=== PATIENT | male | born 1950 | race Caucasian/White ===

== ENCOUNTER 2018-12-30 13:40 | Emergency (ER) | payer OTHER, MEDICARE ==
--- NOTE | 2018-12-30 17:07 | ER Document Report ---
HPI - HPI Time Seen by Provider: 12/30/18 15:58 Pain Level: 4 Notes: Patient is an otherwise healthy 68-year-old male presented to the emergency department chief complaint of left ear pain. Patient reports he fell yesterday while walking through his garage and had earbuds in. He thinks that when he put his hand up to block the fall he pushed the earbuds further in. He states that he had immediate pain and had immediate drainage from the ear. He denies any fevers or recent illness. - CONSTITUTIONAL Constitutional: DENIES: Fever, Chills - EENT EENT: REPORTS: Ear Pain. DENIES: Sore Throat, Eye problems - NEURO Neurology: DENIES: Headache, Weakness, Vision blurred, Dizzinesss / Vertigo - CARDIOVASCULAR Cardiovascular: DENIES: Chest pain - RESPIRATORY Respiratory: DENIES: Trouble Breathing, Coughing - GASTROINTESTINAL Gastrointestinal: DENIES: Abdominal Pain, Black / Bloody Stools - URINARY Urinary: DENIES: Dysuria, Urgency, Frequency - MUSCULOSKELETAL Musculoskeletal: DENIES: Extremity pain Past Medical History - General Information source: Patient - Social History Smoking Status: Never Smoker Chew tobacco use (# tins/day): No Frequency of alcohol use: None Drug Abuse: None Family History: Reviewed & Not Pertinent Patient has suicidal ideation: No Patient has homicidal ideation: No - Past Medical History Cardiac Medical History: Reports: Hx Hypercholesterolemia, Hx Hypertension Renal/ Medical History: Denies: Hx Peritoneal Dialysis Past Surgical History: Reports: Hx Cardiac Catheterization - stents Vertical Provider Document - CONSTITUTIONAL Notes: PHYSICAL EXAMINATION: GENERAL: Well-appearing, well-nourished and in no acute distress. HEAD: Atraumatic, normocephalic. EYES: Pupils equal round extraocular movements intact, conjunctiva are normal. ENT: Nares patent, left TM perforation. Right TM appears unremarkable. NECK: Normal range of motion LUNGS: No respiratory distress Musculoskeletal: Normal range of motion NEUROLOGICAL: Normal speech, normal gait. PSYCH: Normal mood, normal affect. SKIN: Warm, Dry, normal turgor, no rashes or lesions noted. Course - Re-evaluation Re-evalutation: Obvious perforated TM to left side. Will start patient on Augmentin and refer to ENT. Patient updated on plan of care and is agreeable to same. ED return precautions were discussed to include development of fever or increased pain. - Vital Signs Vital signs: Temp Pulse Resp BP Pulse Ox 98.0 F 78 16 130/91 H 97 12/30/18 13:53 12/30/18 13:53 12/30/18 13:53 12/30/18 13:53 12/30/18 13:53 Discharge - Discharge Clinical Impression: Perforated tympanic membrane Qualifiers: Laterality: left Qualified Code(s): H72.92 - Unspecified perforation of tympan ic membrane, left ear Condition: Stable Disposition: HOME, SELF-CARE Additional Instructions: It appears that the tympanic membrane of the left ear is perforated. Please take the antibiotics as prescribed. As discussed please follow-up with ears nose and throat doctor. I have given you contact information for [facility]. Please call them tomorrow to schedule a follow-up appointment. In the meantime do not allow any fluid into the ear when showering. Take Tylenol or ibuprofen for pain. Prescriptions: Amox Tr/Potassium Clavulanate [Augmentin 875-125 mg Tablet] 1 tab PO BID #20 tablet Referrals: RAFAEL HOGAN DO [ASSOCIATE] - Follow up as needed
[2018-12-30 17:17] VITALS: BP 113/78
== END 2018-12-30 17:17 | disposition home or self-care (01) ==
LOC: ER 13:40
DX: H72.92 Unspecified perforation of tympanic membrane, left ear (principal); E78.00 Pure hypercholesterolemia, unspecified; I10 Essential (primary) hypertension; W18.30XA Fall on same level, unspecified, initial encounter
CPT/HCPCS: 99282

== ENCOUNTER → 2019-07-01 | Day surgery (SDC) | payer OTHER, MEDICARE ==
[~2019-07-01] MED LIST: BUPIVACAINE HCL 0.5 % INJ/PF 30 ML SDV INJ PRN; BUPIVACAINE HCL 0.5 % INJ/PF 30 ML SDV ONE; LIDOCAINE 2% INJ-PF (20 MG/ML) 10 ML AMPUL INJ PRN; LIDOCAINE 2% INJ-PF (20 MG/ML) 10 ML AMPUL ONE; TRIAMCINOLONE ACETONIDE INJ 40 MG/1 ML VIAL INJ PRN
--- NOTE | 2019-07-01 09:07 | Operative Report ---
Operative Report DATE OF SURGERY: 07/01/19 PREOPERATIVE DIAGNOSIS: Left hip primary osteoarthritis POSTOPERATIVE DIAGNOSIS: Left hip primary osteoarthritis OPERATION: Left hip intra-articular injection SURGEON: DEVANTE FLANAGAN JR ANESTHESIA: Local COMPLICATIONS: None ESTIMATED BLOOD LOSS: none PROCEDURE: Patient was placed supine on the fluoroscopic table. A timeout was performed verifying site and procedure. Using sterile technique 3 cc of 1% lidocaine was injected into the left hip injection site. After adequate analgesia a spinal ne edle was placed with fluoroscopic guidance down to the level of the hip joint. Contrast dye was injected to the hip that confirmed appropriate placement of the spinal needle. After this the dye syringe was removed and the medication syringe consisting of 1% lidocaine x1 cc, half percent Marcaine x1 cc, 40 mg of triamcinolone were injected into the left hip. A sterile dressing was placed. Patient tolerated procedure well and was brought off of the fluoroscopy table in stable condition and was discharged.
--- NOTE | 2019-07-01 13:25 | RADIOLOGY REPORT (SQ) ---
EXAM DESCRIPTION: STEROID JT INJECT/HIP/KNEE/SHL COMPLETED DATE/TIME: 07/01/2019 9:33 am REASON FOR STUDY: M16.12 LEFT HIP STEROID INJECTION COMPARISON: AP pelvis 12/25/2007 FLUOROSCOPY TIME: 0.1 minutes 3 fluoroscopic digital images saved to PACS. TECHNIQUE: Intra-operative images acquired during surgical procedure to evaluate progress. NUMBER OF IMAGES: 3 fluoroscopic digital images LIMITATIONS: None. FINDINGS: Intra procedural imaging and fluoro during procedure performed by orthopedic surgery IMPRESSION: IMAGE(S) OBTAINED DURING PROCEDURE. COMMENT: Quality ID 145: Final reports for procedures using fluoroscopy that document radiation exp osure indices, or exposure time and number of fluorographic images (if radiation exposure indices are not available) Please consult full operative report of the attending physician for description of the procedure. TECHNICAL DOCUMENTATION: JOB ID: [id number] [employer]- All Rights Reserved Reading location - IP/workstation name: [email or web address]
== END ==
LOC: CCL 07:54
PROVIDERS: ATTEND Orthopaedic Surgery
DX: M16.12 Unilateral primary osteoarthritis, left hip (principal)
CPT/HCPCS: 20610; 77002; Q9967; J3490; J3301

== ENCOUNTER → 2019-12-01 | Day surgery (SDC) | payer MEDICARE ==
[~2019-12-01] MED LIST changes: -BUPIVACAINE HCL 0.5 % INJ/PF 30 ML SDV INJ PRN; -BUPIVACAINE HCL 0.5 % INJ/PF 30 ML SDV ONE; -LIDOCAINE 2% INJ-PF (20 MG/ML) 10 ML AMPUL INJ PRN; -LIDOCAINE 2% INJ-PF (20 MG/ML) 10 ML AMPUL ONE; -TRIAMCINOLONE ACETONIDE INJ 40 MG/1 ML VIAL INJ PRN; +TRIAMCINOLONE ACETONIDE INJ 40 MG/1 ML VIAL ONE
--- NOTE | 2019-12-01 14:04 | Operative Report ---
Operative Report DATE OF SURGERY: 12/01/19 PREOPERATIVE DIAGNOSIS: Right hip osteoarthritis OPERATION: Right hip arthrogram and injection under fluoroscopic guidance SURGEON: DEVANTE FLANAGAN JR ANESTHESIA: Local COMPLICATIONS: None PROCEDURE: Patient is been having severe right pain that is debilitating. We discussed risks and benefits in the office and the patient agreed to proceed with a hip injection. This serves the purpose of both being diagnostic as well as therapeutic and helping to determine the source of their pain. They understood and after signing operative informed consent we proceeded with a hip injection in the hospital under fluoroscopic guidance. The patient was brought into the fluoroscopic suite and laid supine on the table. The site was marked and prepped in standard sterile fashion. A timeout was performed. Approximately 2 cc of lidocaine were utilized to anesthetize the injection site. Following this a 22-gauge spinal needle was introduced into the right hip joint and confirmed with fluoroscopy. Contrast dye was injected and found to be intracapsular. Following this 1 mL of 40 g of Kenalog in conjunction with 2 cc of 2% lidocaine and 2 cc of quarter percent Marcaine were injected into the hip. A sterile Band-Aid was then placed and the patient was assisted off the fluoroscopic table. They tolerated the procedure well.
== END ==
LOC: RAD 09:53
PROVIDERS: ATTEND Orthopaedic Surgery
DX: M16.11 Unilateral primary osteoarthritis, right hip (principal)
CPT/HCPCS: 20610; 77002; J3301

== ENCOUNTER 2020-08-08 07:57 | Day surgery (SDC) | payer OTHER, MEDICARE ==
--- NOTE | 2020-08-03 14:50 | RADIOLOGY REPORT (SQ) ---
EXAM DESCRIPTION: CHEST 2 VIEWS IMAGES COMPLETED DATE/TIME: 08/03/2020 8:26 am REASON FOR STUDY: PRE OP COMPARISON: None. EXAM PARAMETERS: NUMBER OF VIEWS: two views TECHNIQUE: Digital Frontal and Lateral radiographic views of the chest acquired. RADIATION DOSE: NA LIMITATIONS: none FINDINGS: LUNGS AND PLEURA: No opacities, masses or pneumothorax. No pleural effusion. MEDIASTINUM AND HILAR STRUCTURES: No masses or contour abnormalities. HEART AND VASCULAR STRUCTURES: Heart normal size. No evidence for failure. BONES: No acute findings. HARDWARE: None in the chest. OTHER: No other significant finding. IMPRESSION: NO ACUTE RADIOGRAPHIC FINDING IN THE CHEST. TECHNICAL DOCUMENTATION: JOB ID: [id number] 2010 [employer]- All Rights Reserved Reading location - IP/workstation name: [email or web address]
[~2020-08-08 07:57] MED LIST changes: +ACETAMINOPHEN 325 MG TABLET PO PRN; +CEFAZOLIN 2 GM/D5W RTU 2 GM/50 ML RTUPB IV PRN; +CELECOXIB 200 MG CAPSULE PO PRN; +EPINEPHRINE INJ/PF 1 MG/1 ML AMPULE ONE; +FENTANYL CITRATE INJ/PF 100 MCG/2 ML AMPUL ONE; +GABAPENTIN 100 MG CAPSULE PO PRN; +LACTATED RINGERS 1000 ML IV PRN; +LIDOCAINE 0.5% INJ-PF (5 MG/ML) 50 ML SDV SUBCUT PRN; +MIDAZOLAM 2 MG/2 ML INJ ONE; +ONDANSETRON 4 MG TAB.RAPDIS PO PRN; +ONDANSETRON HCL INJ/PF 4 MG/2 ML SDV ONE; +OXYCODONE HCL SR 10 MG TABLET PO PRN; +PANTOPRAZOLE SODIUM 20 MG TABLET.DR PO PRN; +PROPOFOL INJ 200 MG/20 ML VIAL IV ONE; +SCOPOLAMINE HYDROBROMIDE 1.5 MG PATCH.TD72 TD PRN; +TRANEXAMIC ACID INJ/PF 1,000 MG/10 ML SDV IV PRN; +TRANEXAMIC ACID INJ/PF 1,000 MG/10 ML SDV ONE; -TRIAMCINOLONE ACETONIDE INJ 40 MG/1 ML VIAL ONE; +VANCOMYCIN HCL 1,000 MG in DEXTROSE 5%-WATER 250 ML IV PRN
[2020-08-08] MEDS ORDERED: CEFAZOLIN 2 GM/D5W RTU 2 GM/50 ML RTUPB IV ONE ×2 (08:45→15:50)
[2020-08-08] MEDS ORDERED: PANTOPRAZOLE SODIUM 20 MG TABLET.DR PO ONE ×2 (08:45→09:52)
[2020-08-08] MEDS ORDERED: ONDANSETRON HCL INJ/PF 4 MG/2 ML SDV ONE (08:45)
[2020-08-08] MEDS ORDERED: CELECOXIB 200 MG CAPSULE ONE (08:45)
[2020-08-08] MEDS ORDERED: ACETAMINOPHEN 325 MG TABLET ONE (08:45)
[2020-08-08] MEDS ORDERED: SCOPOLAMINE HYDROBROMIDE 1.5 MG PATCH.TD72 ONE (08:45)
[2020-08-08] MEDS ORDERED: GABAPENTIN 100 MG CAPSULE ONE (08:46)
[2020-08-08] MEDS ORDERED: KETOROLAC TROMETHAMINE INJ/PF 30 MG/1 ML SDV ONE (09:38)
[2020-08-08] MEDS ORDERED: BUPIVACAINE HCL 0.25 % INJ/PF (2.5 MG/1 ML) 30 ML VIAL ONE (09:38)
[2020-08-08] MEDS ORDERED: LIDOCAINE 1% INJ-PF (10 MG/ML) 30 ML SDV ONE (09:38)
[2020-08-08] MEDS ORDERED: EPHEDRINE SULFATE INJ 50 MG/1 ML AMPULE ONE (09:38)
[2020-08-08] MEDS ORDERED: VANCOMYCIN HCL INJ 1000 MG VIAL ONE (09:38)
[2020-08-08] MEDS ORDERED: NORMAL SALINE 1000 ML 1,000 ML IV ONE (09:52)
[2020-08-08] MEDS ORDERED: TRANEXAMIC ACID INJ/PF 1,000 MG/10 ML SDV IV ONE (09:52)
[2020-08-08] MEDS ORDERED: ONDANSETRON 4 MG TAB.RAPDIS PO PRN (09:52)
[2020-08-08] MEDS ORDERED: ZOLPIDEM TARTRATE 5 MG TABLET PO PRN (09:52)
[2020-08-08] MEDS ORDERED: TRAMADOL HCL 50 MG TABLET PO PRN (09:52)
[2020-08-08] MEDS ORDERED: DIPHENHYDRAMINE HCL 25 MG CAPSULE PO PRN (09:52)
[2020-08-08] MEDS ORDERED: DOCUSATE SODIUM 100 MG CAPSULE PO PRN (09:52)
[2020-08-08] MEDS ORDERED: OXYCODONE HCL IR 5 MG TABLET PO PRN ×4 (09:52)
[2020-08-08] MEDS ORDERED: MORPHINE SULFATE 10 MG/ML INJ IV PRN ×3 (09:52→10:47)
[2020-08-08] MEDS ORDERED: DEXAMETHASONE SOD PHOS INJ 10 MG/1 ML VIAL IV ONE (09:52)
[2020-08-08] MEDS ORDERED: PROMETHAZINE HCL INJ 25 MG/1 ML VIAL IV PRN ×2 (10:47)
[2020-08-08] MEDS ORDERED: ONDANSETRON HCL INJ/PF 4 MG/2 ML SDV IV PRN (10:47)
[2020-08-08] MEDS ORDERED: DIPHENHYDRAMINE HCL 50 MG/ML VIAL IV PRN (10:47)
[2020-08-08] MEDS ORDERED: MEPERIDINE HCL/PF INJ 25 MG/1 ML DISP.SYRIN IV PRN (10:47)
[2020-08-08] MEDS ORDERED: FENTANYL CITRATE INJ/PF 100 MCG/2 ML AMPUL IV PRN ×3 (10:47)
[2020-08-08] MEDS ORDERED: ACETAMINOPHEN 325 MG TABLET PO SCH (12:00)
[2020-08-08] MEDS ORDERED: PROPOFOL INJ 200 MG/20 ML VIAL IV ONE (12:03)
--- NOTE | 2020-08-08 12:04 | Operative Report ---
Operative Report DATE OF SURGERY: 08/08/20 PREOPERATIVE DIAGNOSIS: Right hip severe primary osteoarthritis POSTOPERATIVE DIAGNOSIS: Right hip severe primary osteoarthritis OPERATION: Right total hip arthroplasty SURGEON: DEVANTE FLANAGAN JR ANESTHESIA: Spinal COMPLICATIONS: None ESTIMATED BLOOD LOSS: 150 cc PROCEDURE: Implants: [employer] a fit size 11 femoral stem with standard offset, a R3 size 56 cup, and a standard liner, a +4 neck length 36 mm Oxin[employer] head OPERATIVE PROCEDURE: Patient was brought to the operating room on and underwent spinal anesthesia. 2 grams of Ancef and 1 g of vancomycin was given. After proper anesthesia was obtained, patient was positioned, padded, prepped, and draped in the usual sterile fashion on the operating room table. Appropriate time out was performed. An anterior approach to the hip was undertaken with meticulous hemostasis through the deep interval. A capsulectomy was performed followed by exposure of the femoral neck. The femoral neck was cut in line with the femoral broach and the femoral head was removed. The acetabulum was then exposed with three retractors in an atraumatic fashion. Soft tissue and osteophytes were removed. Medialization reaming was performed followed by reaming of the acetabulum. Wound was irrigated with dilute betadyne solution and the 56 mm acetabulum was impacted into correct position and stability checked by manipulating the impaction handle which rocked the pelvis. A standard liner was impacted into the shell with good stability. Potential impinging osteophytes were removed. Attention was then directed toward the femur, which was exposed with two retractors in an atraumatic fashion. A bone hook was placed to carefully perfor m releases along the superior capsule until the femur was safely delivered through the wound. A box maker wood was utilized followed by lateralization rasping and then broaching up to a stable, filled proximal femur. With a standard offset neck and a 36 mm +0 head, stability was good in flexion and extension with near equal leg lengths. The final size 11 stem was impacted into a copiously irrigated femoral canal. The final size +4 neck length 36 mm head was impacted on a clean dry femoral taper. (This produced slightly long leg length on the right. The patient was counseled preoperatively on the likelihood of making his right leg slightly longer in order to match it later given his left hip osteoarthritis that he wants treated in the near term). The hip was irrigated and reduced, further irrigation with antibiotic solution, betadine solution, then antibiotic solution. Bleeders were coagulated with bovie cautery. The fascia was then closed with number 2 barbed PDS; the subcutaneous tissue closed with 2-0 monocryl and then a running 2-0 monocryl subcuticular. A silver dressing was then applied. All needle sponge and instrument counts were correct. Patient was awakened from sedation anesthesia and taken to recovery room in stable condition.
[2020-08-08] MEDS ORDERED: DEXAMETHASONE SOD PHOS INJ 10 MG/1 ML VIAL ONE (12:17)
--- NOTE | 2020-08-08 12:33 | RADIOLOGY REPORT (SQ) ---
EXAM DESCRIPTION: HIP RIGHT AP/LATERAL IMAGES COMPLETED DATE/TIME: 08/08/2020 12:24 pm REASON FOR STUDY: post op M16.11 UNILATERAL PRIMARY OSTEOARTHRITIS, RIGHT HIP COMPARISON: None. NUMBER OF VIEWS: Two views. TECHNIQUE: AP pelvis and additional frog legview of the right hip. LIMITATIONS: None. FINDINGS: Postoperative images show a right total hip replacement in good position. Degenerative renee int disease is seen in the left hip. IMPRESSION: Right total hip replacement. Refer to operative note for further information. Degenera tive joint disease in the left hip. TECHNICAL DOCUMENTATION: JOB ID: [id number] 2010 [employer]- All Rights Reserved Reading location - IP/workstation name: [email or web address]
--- NOTE | 2020-08-08 12:41 | Discharge Summary ---
Discharge Summary (SDC) - Discharge Final Diagnosis: Right hip primary osteoarthritis status post right total hip arthroplasty Date of Surgery: 08/08/20 Discharge Date: 08/08/20 Condition: Stable Treatment or Instructions: Full details of postoperative instructions have been provided to the patient in the clinic. Additionally they should maintain their bandage in place for 10 days, and then changed to a dry dressing. They can take showers with this occlusive dressing but any further dressing should also be occlusive. No showers with the wound unprotected until cleared by me in the clinic. If the bandage falls off early or become saturated they can change as needed to another occlusive dressing. Follow-up with Dr. Raghav Carlton, orthopedic surgeon at [facility] for surgery, in 10 days. Call for an appointment. . [address], [place] [address] Referrals: [facility] [Primary Care Provider] - Discharge Diet: As Tolerated Respiratory Treatments at Home: Deep Breathing/Coughing Discharge Activity: Activity As Tolerated, No Driving, Keep Legs Elevated, No tub bath, Walk Frequently Adaptive Devices on Discharge: Rolling Walker, Bedside Commode Report the Following to Your Physician Immediately: Shortness of Breath, Fever over 101 Degrees, Unusual Bleeding, Drainage-Yellow
[2020-08-08] MEDS ORDERED: CEFAZOLIN SODIUM 2 GM in DEXTROSE 5%-WATER 100 ML IV SCH ×2 (14:00→22:00)
[2020-08-08] MEDS ORDERED: CEFAZOLIN 2 GM/D5W RTU 2 GM/50 ML RTUPB IV SCH (14:00)
[2020-08-08] MEDS ORDERED: OXYCODONE HCL IR 5 MG TABLET ONE (14:10)
--- NOTE | 2020-08-08 15:46 | RADIOLOGY REPORT (SQ) ---
EXAM DESCRIPTION: HIP IN OPERATING RM; NO CHG FLUORO IMAGES COMPLETED DATE/TIME: 08/08/2020 2:24 pm REASON FOR STUDY: RIGHT HIP TOTAL ARTHROPLASTY ASSITED WITH FLUORO IN OR M16.11 UNILATERAL PRIMARY OSTEOARTHRITIS, RIGHT HIP COMPARISON: None. FLUOROSCOPY TIME: 0.0 minutes. 2 images saved to PACS. TECHNIQUE: Intra-operative images acquired during surgical procedure to evaluate progress. NUMBER OF IMAGES: 2 LIMITATIONS: None. FINDINGS: Patient undergoing arthroplasty, labeled "Right" . Please correlate with operative note. IMPRESSION: IMAGE(S) OBTAINED DURING PROCEDURE. COMMENT: Quality ID 145: Final reports for procedures using fluoroscopy that document radiation exp osure indices, or exposure time and number of fluorographic images (if radiation exposure indices are not available) Please consult full operative report of the attending physician for description of the procedure. TECHNICAL DOCUMENTATION: JOB ID: [id number] 2010 [employer]- All Rights Reserved Reading location - IP/workstation name: [email or web address]
--- NOTE | 2020-08-08 15:46 | RADIOLOGY REPORT (SQ) ---
EXAM DESCRIPTION: HIP IN OPERATING RM; NO CHG FLUORO IMAGES COMPLETED DATE/TIME: 08/08/2020 2:24 pm REASON FOR STUDY: RIGHT HIP TOTAL ARTHROPLASTY ASSITED WITH FLUORO IN OR M16.11 UNILATERAL PRIMARY OSTEOARTHRITIS, RIGHT HIP COMPARISON: None. FLUOROSCOPY TIME: 0.0 minutes. 2 images saved to PACS. TECHNIQUE: Intra-operative images acquired during surgical procedure to evaluate progress. NUMBER OF IMAGES: 2 LIMITATIONS: None. FINDINGS: Patient undergoing arthroplasty, labeled "Right" . Please correlate with operative note. IMPRESSION: IMAGE(S) OBTAINED DURING PROCEDURE. COMMENT: Quality ID 145: Final reports for procedures using fluoroscopy that document radiation exp osure indices, or exposure time and number of fluorographic images (if radiation exposure indices are not available) Please consult full operative report of the attending physician for description of the procedure. TECHNICAL DOCUMENTATION: JOB ID: [id number] 2010 [employer]- All Rights Reserved Reading location - IP/workstation name: [email or web address]
[2020-08-08 17:33] VITALS: BP 139/88
[2020-08-08] MEDS ORDERED: KETOROLAC TROMETHAMINE INJ/PF 30 MG/1 ML SDV IV SCH (18:00)
[2020-08-08] MEDS ORDERED: GABAPENTIN 100 MG CAPSULE PO SCH (22:00)
[2020-08-09] MEDS ORDERED: POLYETHYLENE GLYCOL 3350 POWDER 17 GM/1 PACKET PO SCH (10:00)
[2020-08-09] MEDS ORDERED: ASPIRIN 325 MG TABLET PO SCH (10:00)
[2020-08-10] MEDS ORDERED: CELECOXIB 200 MG CAPSULE PO SCH (10:00)
== END 2020-08-08 17:15 | disposition home or self-care (01) ==
LOC: OROUT 07:57 → EDSTATUS 10:00 → OROUT 17:15
PROVIDERS: ATTEND Orthopaedic Surgery
DX: M16.0 Bilateral primary osteoarthritis of hip (principal); E78.5 Hyperlipidemia, unspecified; I10 Essential (primary) hypertension; E66.9 Obesity, unspecified; I25.10 Atherosclerotic heart disease of native coronary artery without angina pectoris; Z79.82 Long term (current) use of aspirin; Z95.5 Presence of coronary angioplasty implant and graft; Z79.899 Other long term (current) drug therapy; Z01.812 Encounter for preprocedural laboratory examination; Z20.822 Contact with and (suspected) exposure to COVID-19
CPT/HCPCS: 87635; 71046; 73502; 73501; 97110; 97116; 97161; 97535; 97165; 27130; J2250; J3490 ×4; J0171; J1885; J2405; J7060; J2704; J3370; J1100; J0690; C9803; 01214; J3010